=== PATIENT | female | born 1965 | race Caucasian/White ===

== ENCOUNTER 2016-10-13 15:36 | Emergency (ER) | payer MEDICARE ==
[~2016-10-13] VITALS: Ht 157.5 cm; Wt 63.5 kg
[2016-10-13 15:38] VITALS: BP 115/69
== END 2016-10-13 16:45 | disposition home or self-care (01) ==
LOC: ED 16:39
DX: J15.9 Unspecified bacterial pneumonia (principal); J45.909 Unspecified asthma, uncomplicated; J44.9 Chronic obstructive pulmonary disease, unspecified; E78.5 Hyperlipidemia, unspecified; I10 Essential (primary) hypertension; F17.200 Nicotine dependence, unspecified, uncomplicated; F12.10 Cannabis abuse, uncomplicated
CPT/HCPCS: 71020; 99284

== ENCOUNTER 2017-01-11 00:49 | Emergency (ER) | payer MEDICARE ==
[~2017-01-11] VITALS: Ht 157.5 cm; Wt 57.4 kg
[2017-01-11] MEDS ORDERED: KETOROLAC 30 MG/1 ML IM ONE (01:30)
[2017-01-11] MEDS ORDERED: KETOROLAC 30 MG/1 ML ONE (01:39)
[2017-01-11] MEDS ORDERED: CYCLOBENZAPRINE 10 MG TABLET ONE (02:52)
[2017-01-11] MEDS ORDERED: CYCLOBENZAPRINE 10 MG TABLET PO ONE (03:00)
[2017-01-11 03:03] VITALS: BP 132/99
== END 2017-01-11 03:19 | disposition home or self-care (01) ==
LOC: ED 01:17
DX: S30.0XXA Contusion of lower back and pelvis, initial encounter (principal); J44.9 Chronic obstructive pulmonary disease, unspecified; E78.5 Hyperlipidemia, unspecified; I10 Essential (primary) hypertension; F17.200 Nicotine dependence, unspecified, uncomplicated; Z88.0 Allergy status to penicillin; Z88.1 Allergy status to other antibiotic agents; Z88.5 Allergy status to narcotic agent; X58.XXXA Exposure to other specified factors, initial encounter; Y93.39 Activity, other involving climbing, rappelling and jumping off; Y92.828 Other wilderness area as the place of occurrence of the external cause; Y99.8 Other external cause status
CPT/HCPCS: 72220; 96372; 99284; J1885

== ENCOUNTER 2017-12-15 23:28 | Emergency (ER) | payer MEDICARE ==
[~2017-12-15] VITALS: Ht 157.5 cm; Wt 73.2 kg
[2017-12-15 23:30] VITALS: BP 112/74
[2017-12-16] MEDS ORDERED: IBUPROFEN 200 MG TABLET PO ONE
[2017-12-16] MEDS ORDERED: IBUPROFEN 200 MG TABLET ONE (00:03)
== END 2017-12-16 01:09 | disposition home or self-care (01) ==
LOC: ED 23:59
DX: R51 Headache (principal); E78.5 Hyperlipidemia, unspecified; I10 Essential (primary) hypertension
CPT/HCPCS: 99282

== ENCOUNTER 2021-03-12 14:05 | Emergency (ER) | payer MEDICARE ==
[~2021-03-12] VITALS: Ht 157.5 cm; Wt 69.0 kg
[2021-03-12 15:11] LABS: MICROSCOPIC AUTO
[2021-03-12 16:21] LABS: BASOPHILS % (AUTO) 2 % (0-1); EOSINOPHILS % (AUTO) 1 % (1-7); LYMPHOCYTES % (AUTO) 31 % (22-44); MEAN CORPUSCULAR HGB CONC 34.4 g/dL (32.4-35.8); MONOCYTES % (AUTO) 10 % (2-9); NEUTROPHILS % (AUTO) 57 % (42-75); PLATELET COUNT 417 x10^3/uL (130-400); RED CELL DISTRIBUTION WIDTH 13.1 % (9.6-15.2)
[2021-03-12 16:30] LABS: ALBUMIN 3.8 g/dL (3.4-5.0); ANION GAP 7 mmol/L (5-15); CALCIUM 9.5 mg/dL (8.5-10.1); CHLORIDE 111 mmol/L (98-107); CREATININE 0.68 mg/dL (0.55-1.02)
--- NOTE | 2021-03-12 16:51 | NUR ---
[id number]
--- NOTE | 2021-03-12 17:44 | NUR ---
nil x2
[2021-03-12] MEDS ORDERED: KETOROLAC 30 MG/1 ML IM ONE (18:00)
[2021-03-12] MEDS ORDERED: KETOROLAC 60 MG/2 ML ONE (19:17)
[2021-03-12 19:27] VITALS: BP 123/68
== END 2021-03-12 19:29 | disposition home or self-care (01) ==
LOC: ED 19:26
DX: N23 Unspecified renal colic (principal); I10 Essential (primary) hypertension; E78.5 Hyperlipidemia, unspecified
CPT/HCPCS: 36415; 74018; 76770; 80048; 81001; 82040; 85025; 87086; 96372; 99285; J1885